=== PATIENT | male | born 1990 | race Caucasian/White ===

== ENCOUNTER 2025-04-05 08:33 | Emergency (ER) | payer OTHER, SELFPAY ==
--- NOTE | 2025-04-05 08:35 | ED_ITS ---
HPI - Skin/Abscess/Foreign Bdy General Chief complaint: Skin/Abscess/Foreign Body Stated complaint: chiggar bites Source: patient and RN notes reviewed Mode of arrival: ambulatory Limitations: no limitations History of Present Illness HPI narrative: 34-year-old male presents with concern for insect bites. He reports he was camping on Saturday and went for a walk in the [facility]. Reports he had multiple bug bites all over his body, worse on his buttock and groin it. Reports they are very itchy. Reports his pulled red sugars from his skin. He has used calamine lotion, hydrocortisone without relief. MD complaint: insect bite/sting Related Data Home Medications ?Medication ?Instructions ?Recorded ?Confirmed ?Last Taken ?Type buspirone 10 mg tablet mg 04/05/25 Unknown History duloxetine 30 mg capsule,delayed mg PO 04/05/25 Unknown History release Allergies Allergy/AdvReac Type Severity Reaction Status Date / Time No Known Allergies Allergy Mild Verified 10/29/14 19:16 Review of Systems Review of Systems: CONSTITUTIONAL: Denies malaise, chills, sweats, or fever. EYES: Denies redness, or discharge. ENT: Denies rhinorrhea, congestion, swollen lips, swollen tongue CARDIOVASCULAR: Denies chest pain, palpitations, or edema. RESPIRATORY: Denies cough or dyspnea. GASTROINTESTINAL: Denies abdominal pain, nausea, vomiting SKIN: Reports insect bites generalized on his body MUSCULOSKELETAL: Denies joint pain or myalgia. NEUROLOGIC: Denies headache. All systems reviewed & are unremarkable except as noted in HPI and below PMFSH Comments At time of signature, agree with nursing past medical, surgical, social and family history. There is no relevant family history pertinent to the presenting complaint Exam Narrative: GENERAL: Well-appearing, well-nourished, and in no acute distress. HEAD: Normocephalic, atraumatic. EYES: PERRLA, conjunctivae clear, and EOMI. ENT: Mucous membranes moist. Oropharynx without edema, erythema or lesions. NECK: Supple. No lymphadenopathy CHEST: Clear to auscultation. No respiratory distress. HEART: Regular rate and rhythm. SKIN: Warm, dry. Discrete inflamed papules noted scattered on the arms, legs, torso, concentrated on the buttocks and groin NEURO: Alert and oriented x3. PSYCH: Normal mood and affect Course Course Emergency Course: Patient is aware of diagnosis, understands and agrees to treatment plan. Anticipatory guidance given. Patient agrees to follow-up as directed and is aware of reasons to seek care at the emergency department. Portions of this record may have been created with voice recognition software Level of Care: Express Care Visit Vital Signs Vital signs: Reviewed. MDM - Skin/Abscess/Foreign Bdy MDM Narrative Medical decision making narrative: Does not appear at this time to be erythema multiforme, bullous, SJS, TEN; no evidence at this time to suggest RMSF, endocarditis or Lyme disease; patient looks well, nontoxic and is tolerating oral intake; no neurologic signs or symptoms; no headache, photophobia or neck pain; afebrile; appropriate for initial outpatient treatment; discussed the importance of follow-up, patient a timmy; question, viral exanthema, contact dermatitis, allergic dermatitis, eczema, urticaria, insect bite. No soft palate or uvula edema, no tongue, lip edema or other mucosal involvement, no respiratory compromise, no stridor, no wheezing, no wheezing, no history of syncope, no hypotension, no nausea, vomiting, or diarrhea. Instructed patient to go to nearest ER immediately for any worsening symptoms including but not limited to: fever, spreading rash, pain, sore throat, headache, dizziness, chest pain, trouble breathing, or any symptoms concerning to the patient. Critical Care Time Critical Care Time Critical Care Time: No Discharge Plan Discharge Clinical Impression: Insect bites Patient Disposition: Home Condition: Stable Instructions: Chigger Bite (ED) Additional Instructions: 1) Please follow-up with your primary care doctor as needed. 2) If you have any urgent concerns please go to the ER. 3) Please take medications as prescribed and continue taking your home medications as usual. 4) Please read and follow information included in discharge instructions. Patient Language: Rwandan Prescriptions: New prednisone 10 mg tablet 10 mg PO DAILY Qty: 42 0RF Rx Instructions: 6 tabs days 1-2, 5 tabs days 3-4, 4 tabs days 5-6, 3 tabs days 7-8, 2 tabs days 9-10, 1 tab days 11-12 No Action buspirone 10 mg tablet duloxetine 30 mg capsule,delayed release(DR/EC) PO Follow-up/Referrals: Brando,Shereen Arnold APN [Primary Care Provider] - Time of Disposition: 08:56
--- OUTSIDE RECORDS SUMMARY | 2025-04-05 08:36 | XMS_ITS | Patient Health Record ---
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 Role Phone Michaels Shereen BALDERAS Primary Care Provider Chelsea Brooks Unavailable [phone] Terry Avalos Unavailable [phone] Allergies No Known Allergies Results Component Value Reference Range Notes UDT Reviewed date:03/15/2025 11:17:41 AM Interpretation: Performing Lab: Notes/Report: THC n 0 - 50 ng/ml Cocaine n 0 - 300 ng/ml Amphetamine n 0 - 1000 ng/ml Buprenorphine (BUP) n 0 - 10 ng/ml Secobarbital (Bar) n 0 - 300 ng/ml Oxazepam (BZO) n 0 - 300 ng/ml 8-xwqhykttxw-2,2-cxcwyqdg-7,3-diphenylpyrrolidine (JEWEL P) n 0 - 300 ng/ml Methamphetamine (MET) n 0 - 1000 ng/ml Methylenedioxymethamphetamine (MDMA) n 0 - 500 ng/ml Morphine (MOP 300/NAR2220) n 0 - 300 ng/ml Methadone (MTD) n 0 - 300 ng/ml Phencyclidine (PCP) n 0 - 25 ng/ml Nortriptyline (TCA) n 0 - 1000 ng/ml Oxycodone n 0 - 300 ng/ml x n 0 - 300 ng/ml UDT Reviewed date:12/08/2024 04:47:19 PM Interpretation: Performing Lab: Notes/Report: THC NEG 0 - 50 ng/ml Cocaine NEG 0 - 300 ng/ml Amphetamine NEG 0 - 1000 ng/ml Buprenorphine (BUP) NEG 0 - 10 ng/ml Secobarbital (Bar) NEG 0 - 300 ng/ml Oxazepam (BZO) NEG 0 - 300 ng/ml 8-gwuatuaqpn-8,8-comseyur-7,3-diphenylpyrrolidine (JEWEL P) NEG 0 - 300 ng/ml Methamphetamine (MET) NEG 0 - 1000 ng/ml Methylenedioxymethamphetamine (MDMA) NEG 0 - 500 ng/ml Morphine (MOP 300/FMI3329) NEG 0 - 300 ng/ml Methadone (MTD) NEG 0 - 300 ng/ml Phencyclidine (PCP) NEG 0 - 25 ng/ml Nortriptyline (TCA) NEG 0 - 1000 ng/ml Oxycodone NEG 0 - 300 ng/ml x NEG 0 - 300 ng/ml UDT Reviewed date:11/23/2024 11:41:54 AM Interpretation: Performing Lab: Notes/Report: THC N 0 - 50 ng/ml Cocaine N 0 - 300 ng/ml Amphetamine N 0 - 1000 ng/ml Buprenorphine (BUP) N 0 - 10 ng/ml Secobarbital (Bar) N 0 - 300 ng/ml Oxazepam (BZO) N 0 - 300 ng/ml 0-fotjzdpyuq-8,2-ewhzqslb-9,3-diphenylpyrrolidine (JEWEL P) N 0 - 300 ng/ml Methamphetamine (MET) N 0 - 1000 ng/ml Methylenedioxymethamphetamine (MDMA) N 0 - 500 ng/ml Morphine (MOP 300/UEM2380) N 0 - 300 ng/ml Methadone (MTD) N 0 - 300 ng/ml Phencyclidine (PCP) N 0 - 25 ng/ml Nortriptyline (TCA) N 0 - 1000 ng/ml Oxycodone N 0 - 300 ng/ml x N 0 - 300 ng/ml Reason For Referral No Information Medications Medication SIG (Take, Route, Frequency, Duration) Notes Start Date End Date Status busPIRone HCl 10 MG 1 capsule Orally 3 times a day; Duration: 30 days Active Lisdexamfetamine Dimesylate 30 MG 1 capsule in the morning Orally Once a day; Duration: 30 days 03/15/2025 Active amLODIPine Besylate 10 MG TAKE 1 TABLET BY MOUTH EVERY DAY Oral; Duration: 90 Days I10,Unavailab le Active Testosterone 10 MG/ACT (2%) 1 pump to skin in the morning to the thighs Transdermal Once a day Active Social History Tobacco Use: Social History Observation Description Date Details (start date - stop date) Former Smoker NA - 09/02/2018 Sex Assigned At : Social History Observation Description Sex Assigned At Male Tobacco Control (Standard) Question Answer Notes Tobacco use: Former smoker When did you stop smoking? 09/02/2018 How long has it been since you last smoked? 1-5 years AUDIT-C (Standard) Question Answer Notes Did you have a drink containing alcohol in the p ast year? No Problems Problem Type SNOMED Code ICD Code Onset Dates Problem Status W/U Status Risk Notes Problem Generalized anxiety disorder (76368623) BEV (generalized anxiety disorder) (F41.1) Active confirmed Problem Attention deficit hyperactivity disorder (327031923) ADHD (attention deficit hyperactivity disorder), combined type (F90.2) Active confirmed Problem Unable to concentrate (finding) (11249456) Difficulty concentrating (R41.840) Active confirmed Vital Signs Heart Rate 73 /min 03/15/2025 Height-cm 185.42 cm 03/15/2025 Blood pressure diastolic 81 mm Hg 03/15/2025 Weight-kg 99.34 kg 03/15/2025 Height 73 in 03/15/2025 Blood pressure systolic 137 mm Hg 03/15/2025 Weight 219 lbs 03/15/2025 BMI 28.89 kg/m2 03/15/2025 Procedures Procedure Date Ordered Date Performed Result Body Sit e ADHD Testing 11/23/2024 12/08/2024 N/A Encounters Encounter Location Date Provider Diagnosis [facility] [address] [address] 11/23/2024 Chelsea Martin Encounter for screen ing for cardiovascular disorders Z13.6 ; Difficulty concentrating R41.840 and Encounter for screening for depression Z13.31 [facility] [address] [facility] [address] [facility] [address] [facility] [address] [place] [address] 12/08/2024 Terry Avalos Lack of concentratio n R41.840 [facility] [address] [facility] [address] [place] [address] 12/15/2024 Chelsea Martin Encounter for screen ing for cardiovascular disorders Z13.6 ; ADHD (attention deficit hyperactivity disorder), combined type F90.2 ; Benign essential HTN I10 and Encounter for screening for depression Z13.31 [facility] [facility] [address] [place] [address] 01/07/2025 Chelsea Bethanyroseanne ADHD (attention defi cit hyperactivity disorder), combined type F90.2 ; BEV (generalized anxiety disorder) F41.1 ; Negative depression screening Z13.31 ; Benign essential HTN I10 ; Encounter for screening for cardiovascular disorders Z13.6 and Encounter for screening for depression Z13.[address] [facility] [address] [place] [address] 02/15/2025 Chelsea Bethanyroseanne BEV (generalized anxiety disorder) F41.1 ; ADHD (attention deficit hyperactivity disorder), combined type F90.2 ; Negative depression screening Z13.31 ; Benign essential HTN I10 ; Encounter for screening for cardiovascular disorders Z13.6 and Encounter for screening for depression Z13.[address] [facility] [address] [place] [address] 03/15/2025 Chelsea Veronica BEV (generalized anxiety disorder) F41.1 and ADHD (attention deficit hyperactivity disorder), combined type F90.[address] [address] 12/15/2024 Cehlsea Veronica Assessments Encounter Date Diagnosis (ICD Code) Assessment Notes Treatment Notes Treatment Clinical Notes Section Notes 12/15/2024 ADHD (attention deficit hyperactivity disorder), combined type (ICD-10 - F90.2) Electronic Prior Authorization was requested for Qelbree 200 MG Capsule Extended Release 24 Hour. Provider can order medication once approval received. 12/08/2024 Lack of concentration (ICD-10 - R41.840) ADHD and Cognitive Function Assessment Summary for Iron Dacosta Date of : 1990 Age: 34 years Date of Assessment: December 08, 2024 Source: [facility] Clinical Report Summary of Findings 1. ADHD Symptomatology (ASRS) Part A: High frequency of symptoms reported. This section includes the six most predictive items for ADHD diagnosis. Interpretation: Strong indication of behaviors aligned with adult ADHD. These may include difficulty initiating tasks, staying focused, and managing time or priorities. 2. Cognitive Assessment Results Planning (Spatial Planning) Score: 23 Above typical range Interpretation: Although performance is above average, it may reflect overcompensation or variability, often seen in individuals with ADHD who perform well under structured conditions but struggle in dynamic or real-world planning tasks. Spatial Working Memory Average Score: 5.6 Above the typical range Interpretation: Suggests preserved working memory capacity, which can support task management and mental flexibility. Attention (Feature Match) Errors: 2 (within typical range) Reaction Time: 3750 milliseconds, above typical range Interpretation: Accuracy is intact, but slowed processing suggests cognitive effort or mental fatigue. This discrepancy between speed and accuracy may reflect compensation or attentional overload. Response Inhibition (Double Trouble) Errors: 9 (within typical range) Interference Ratio for Errors: 4 (within typical range) Interpretation: Basic inhibitory control appears adequate, though slower processing in attention tasks may still impact real-time inhibitory demands in daily functioning. Sustained Attention (SART) Commission Errors: 4 Omission Errors: 2 Both within typical range Interpretation: Sustained attention appears functional in structured tasks, but may not reflect full real-life distractions or interruptions that typically challenge individuals with ADHD. Integrated Clinical Interpretation Iron presents with: ASRS-confirmed ADHD symptomatology, especially in executive and attentional domains. Objective cognitive indicators that reveal slowed processing speed and increased cognitive effort despite maintained accuracy. Functional executive skills like working memory and planning that are preserved in testing but may not translate to consistent real-world performance due to attentional regulation difficulties. Recommendations Confirmatory Diagnostic Interview Conduct a clinical interview and obtain developmental history to validate ADHD diagnosis, ideally with collateral reports if available. Targeted Executive Function Interventions Cognitive-behavior al approaches focused on task initiation, organization, and time management may improve day-to-day function. Use of external aids such as digital reminders, checklists, and time-tracking tools can assist in reducing cognitive load. Consideration for Pharmacological Evaluation Referral to a psychiatrist or prescribing provider for a medication trial may be appropriate if symptoms interfere with occupational or personal functioning. Routine Monitoring Repeat cognitive assessments periodically to evaluate response to treatment or support interventions, particularly focusing on attention and response time. Environmental Adjustments Minimize distractions during work or demanding tasks. Implement structure and routine where possible to optimize attention and reduce impulsivity. 12/15/2024 Encounter for screening for cardiovascular disorders (ICD-10 - Z13.6) 01/07/2025 BEV (generalized anxiety disorder) (ICD-10 - F41.1) 01/07/2025 ADHD (attention deficit hyperactivity disorder), combined type (ICD-10 - F90.2) Electronic Prior Authorization was requested for Qelbree 200 MG Capsule Extended Release 24 Hour. Provider can order medication once approval received. 02/15/2025 BEV (generalized anxiety disorder) (ICD-10 - F41.1) 02/15/2025 ADHD (attention deficit hyperactivity disorder), combined type (ICD-10 - F90.2) Electronic Prior Authorization was requested for Qelbree 200 MG Capsule Extended Release 24 Hour. Provider can order medication once approval received. 03/15/2025 BEV (generalized anxiety disorder) (ICD-10 - F41.1) 11/23/2024 Encounter for screening for cardiovascular disorders (ICD-10 - Z13.6) 11/23/2024 Difficulty concentrating (ICD-10 - R41.840) Pre-treatment evaluation and contraindications Before initiating treatment with a stimulant in adults, we review their cardiovascular history, including chest pain, palpitations, syncope, myocardial infarction, arrhythmia, valvular disease, and family history. We measure blood pressure and pulse in all patients and obtain an electrocardiogram (ECG) in individuals with cardiac history or cardiac symptoms such as palpitations or chest pain. In individuals with a cardiac history, or when findings outside normal limits are seen, we consult a core manager to determine whether the results are sufficiently severe to avoid these medications. We also rule out CAROL; if you are using cannabis, are heavy alcohol, or are using other street drugs and have a history of CAROL, than we consider non-stimulant treatment. We also do routine and random UDT If you refuse or fail to give urine for urine, then we will not prescribe controlled substances. If your urine comes positive for medicine (which are not prescribed to you) and illicit drugs (including Cannabis) then we will not prescribe a controlled substance There is a charge for Stimulant refills 02/15/2025 Negative depression screening (ICD-10 - Z13.31) 11/23/2024 Encounter for screening for depression (ICD-10 - Z13.31) 03/15/2025 ADHD (attention deficit hyperactivity disorder), combined type (ICD-10 - F90.2) ADHD Stimulant Education -Discussed with patient risk of misuse, abuse, and addiction before prescribing stimulant medicines. -Counseled not to share their prescribed stimulant with anyone else. -Educated patient will monitor during treatment: regularly assess and monitor them for signs and symptoms of nonmedical use, addiction, and potential diversion, which may be evidenced by more frequent renewal requests and medication metabolites absent from urine drug screens. -Random UDS (at least every three months or more frequently deemed by provider). -Per office policy, only prescribed to local pharmacy in [place], no early refills on control substance. 01/07/2025 Negative depression screening (ICD-10 - Z13.31) 12/15/2024 Benign essential HTN (ICD-10 - I10) 01/07/2025 Benign essential HTN (ICD-10 - I10) 12/15/2024 Encounter for screening for depression (ICD-10 - Z13.31) 02/15/2025 Benign essential HTN (ICD-10 - I10) 02/15/2025 Encounter for screening for cardiovascular disorders (ICD-10 - Z13.6) 01/07/2025 Encounter for screening for cardiovascular disorders (ICD-10 - Z13.6) 01/07/2025 Encounter for screening for depression (ICD-10 - Z13.31) 02/15/2025 Encounter for screening for depression (ICD-10 - Z13.31) 11/23/2024 Other Schedule for ADHD evaluation to rule in or rule out diagnosis. Continue atomoxetine 80mg daily for now. -Consider dose increase to 100mg or Qelbree pending evaluation results. --avoid stimulant medication due to history of substance use -Assessment and treatment plan reviewed with patient. -Compliance with treatment plan importance discussed. -Discussed the risks/benefits of this medication -Discussed medication side effects. -Contact office if symptoms worsen. -Discussed that it can take up to 6-8 weeks to see full therapeutic effects of psychotropic medications. -Crisis prevention hotline 988. 12/15/2024 Other Discontinue atomoxetine due to ineffectiveness Start Qelbree 200mg daily for ADHD management Patient educated on all medications including potential benefits, side effects, risks. Educated on proper dosing schedule and importance of compliance. [facility] Clinical Report ADHD testing results reviewed and discussed with patient. -Assessment and treatment plan reviewed with patient. -Compliance with treatment plan importance discussed. -Discussed the risks/benefits of this medication -Discussed medication side effects. -Contact office if symptoms worsen. -Discussed that it can take up to 6-8 weeks to see full therapeutic effects of psychotropic medications. -Crisis prevention hotline 988. 01/07/2025 Other Increase Qelbree to 400mg daily for ADHD management Start Buspar 5mg TID for anxiety Patient educated on all medications including potential benefits, side effects, risks. Educated on proper dosing schedule and importance of compliance. -Assessment and treatment plan reviewed with patient. -Compliance with treatment plan importance discussed. -Discussed the risks/benefits of this medication -Discussed medication side effects. -Contact office if symptoms worsen. -Discussed that it can take up to 6-8 weeks to see full therapeutic effects of psychotropic medications. -Crisis prevention hotline 988. 02/15/2025 Other Discontinue Qelbree due to irritability- take 200mg daily for 4 days then stop -continue off of ADHD medication for now, will focus on anxiety. Start duloxetine 30mg daily for mood, anxiety -discussed start after compelting Qelbree taper due to interaction between the two medications. Patient educated on all medications including potential benefits, side effects, risks. Educated on proper dosing schedule and importance of compliance. -Assessment and treatment plan reviewed with patient. -Compliance with treatment plan importance discussed. -Discussed the risks/benefits of this medication -Discussed medication side effects. -Contact office if symptoms worsen. -Discussed that it can take up to 6-8 weeks to see full therapeutic effects of psychotropic medications. -Crisis prevention hotline 988. 03/15/2025 Other Start lisdexamfetamine 30mg daily for ADHD management Patient educated on all medications including potential benefits, side effects, risks. Educated on proper dosing schedule and importance of compliance. [place] PDMP report checked and consistent with prescription history, no controlled substance prescriptions from other providers. UDT today negative -Assessment and treatment plan reviewed with patient. -Compliance with treatment plan importance discussed. -Discussed the risks/benefits of this medication -Discussed medication side effects. -Contact office if symptoms worsen. -Discussed that it can take up to 6-8 weeks to see full therapeutic effects of psychotropic medications. -Crisis prevention hotline 988. Plan Of Treatment No Information Insurance Providers Payer Name Payer Address Payer Phone Subscriber Number Group Number Insured Name Patient Relationship to Insured Coverage Start Date Coverage End Date [facility] [id number] [place] [address] [id number] Iron Doherty Self - patient is the insured Medical (General) History Medical History History ICD Code Past Psychiatric History: Anxiety Disord er abdominal aortic aneurysm: No atrial fibrillation: No chronic fatigue syndrome: No essential tremor: No hyperlipidemia: No hypertension: No Parkinson's disease: No restless leg syndrome: No stroke: No subdural hematoma: No type 1 diabetes mellitus: No type 2 diabetes mellitus: No vitamin B12 deficiency: No vitamin D deficiency: No
--- OUTSIDE RECORDS SUMMARY | 2025-04-05 08:39 | XMS_ITS | Referral Summary ---
Author Organization [facility] Address [address] [place] [address] Care Team Providers Care Tire Stripper Name Role Phone BrandoMagdielShereenbelia Barney NP Primary Care Provider Allergies No known active allergies Medications cyclobenzaprine (FLEXERIL) 10 mg tablet take 1 tablet (10MG) by oral route 2- 3 times daily as needed 20 0 5 Active Additional Information Patient not taking.Reported on 07/11/2020 traMADol (ULTRAM) 50 mg tablet take 1 tablet by oral route every 8 hours as needed 30 0 5 Active Additional Information Patient not taking.Reported on 07/11/2020 acetaminophen-c odeine (TYLENOL-CODEIN E #3) 300-30 mg per tablet take 1 tablet by oral route every 6 hours as needed 20 0 5 Active Additional Information Patient not taking.Reported on 09/26/2022 ibuprofen (ADVIL,MOTRIN) 600 mg tablet Take 1 tablet (600 mg total) by mouth every 6 (six) hours as needed for pain 20 tablet 3 Active Active Problems Problem Noted Date Diagnosed Date Antisocial personality disorder 09/26/2022 Anxiety 09/26/2022 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 CT work up is negative. Physical exam shows tenderness without any other sign. Recommended muscle strain protocol and to follow up with his primary for management. Recurrent herpes simplex 11/21/2018 History of hepatitis C 11/18/2018 Left wrist pain 11/18/2018 Pityriasis versicolor 11/18/2018 Ankle pain 10/26/2014 Overview (2016): Ankle pain Knee pain 10/26/2014 Overview (2016): Knee pain Back pain 10/26/2014 Overview (2016): Back pain Rib pain 10/26/2014 Overview (2016): Rib pain Social History Tobacco Use Types Packs/Day Years Used Date Smoking Tobacco: Former Alcohol Use Standard Drinks/Week Comments Defer 0 (1 standard drink = 0.6 oz pur e alcohol) Personal Safety Answer Date Recorded Getting School Help Needed Denies 08/28 Sex and Gender Information Value Date Recorded Sex Assigned at Not on file Legal Sex Male 12:42 AM RESPIRATORY SUPPORT TECHNICIAN Gender Identity Not on file Sexual Orientation Not on file Last Filed Vital Signs Vital Sign Reading Time Taken Comments Blood Pressure 132/70 09/26/2022 1:48 PM RESPIRATORY SUPPORT TECHNICIAN Pulse 61 09/26/2022 1:48 PM RESPIRATORY SUPPORT TECHNICIAN Temperature 36.8 C (98.2 F) 09/26/2022 10:54 AM RESPIRATORY SUPPORT TECHNICIAN Respiratory Rate 16 09/26/2022 1:48 PM RESPIRATORY SUPPORT TECHNICIAN Oxygen Saturation 98% 09/26/2022 1:48 PM RESPIRATORY SUPPORT TECHNICIAN Inhaled Oxygen Concentration - - Weight 90.7 kg (200 lb) 09/26/2022 10:54 AM RESPIRATORY SUPPORT TECHNICIAN Height 185.4 cm (6' 1) 09/26/2022 10:54 AM RESPIRATORY SUPPORT TECHNICIAN Body Mass Index 26.39 09/26/2022 10:54 AM RESPIRATORY SUPPORT TECHNICIAN Plan of Treatment Not on file Procedures Procedure Name Priority Date/Time Associated Diagnosis Comments SERUM HEPATITIS PANEL Routine 07/15/2013 12:04 PM RESPIRATORY SUPPORT TECHNICIAN from Last 3 Months or Most Recently Relevant to Health Maintenance Results * Serum Hepatitis panel (07/15/2013 12:04 PM RESPIRATORY SUPPORT TECHNICIAN) HBV surface ag NONREAC NONREAC HISTO RICAL RESULTS HAV ab, IgM NONREAC NONREAC HISTORIC AL RESULTS Comment: Early acute infection (within the prior 2 weeks) is not ruled out by this test. HBV core ab, IgM NONREAC NONREAC HIS TORICAL RESULTS HCV ab REACTIVE NONREAC HISTORICAL RESULTS Comment: Critical value called with verification read back Test(s):HEPATITIS C Contact Name:(first, last name):MARY GUAJARDO Location:ER Date/Time and Lab ID: 07/15/13 15:47 [id number] CONFIRMATORY TESTING IS RECOMMENDED. Serum 07/15/2013 12:0 4 PM RESPIRATORY SUPPORT TECHNICIAN us Diego [facility] LAB BLOOD ORDERABLES Final R esult HISTORICAL RESULTS from Last 3 Months or Most Recently Relevant to Health Maintenance Insurance [facility] MEDICAID [facility] CIG[employer] ALLEGIANCE Care Teams Tire Stripper Relationship Specialty Start Date End Date Shereen Michaels NP [address] [place] [address] PCP - General Nurse Practitioner 09/26/22
--- OUTSIDE RECORDS SUMMARY | 2025-04-05 08:39 | XMS_ITS | Clinical Summary ---
Author Organization [facility] Address [address] [place] [address] Care Team Providers Care Cloth Coverer Name Role Phone Unavailable Primary Care Provider Unavailabl e Source Comments [facility],non-owned Affiliates and Associated Physician Practices is amultiple site organization consisting of ambulatory clinics and hospital sitesin [place], [place], [place] and [place]. This disclosure is being madepursuant to the Care Everywhere program and may not contain all information available regarding this patient. Last updated 18.[facility] [id number] Social History Tobacco Use Types Packs/Day Years Used Date Smoking Tobacco: Never Assessed Sex and Gender Information Value Date Recorded Sex Assigned at Not on file Legal Sex Male 5:28 PM ENRICHMENT ASSISTANT Gender Identity Not on file Sexual Orientation Not on file Plan of Treatment Health Maintenance Due Date Last Done Comments HIV SCREENING 12/05/2006 DTAP/TDAP/TD VACCINES (1 - Tdap) 12/05/2010 HEPATITIS B VACCINE (1 of 3 - 19+ 3-dose series) 12/05/2010 HPV VACCINE (1 - 3-dose SCDM series) 12/05/2018 COVID-19 VACCINE ( - 2023-2 5 season) 2024 DEPRESSION SCREENING 09/02/2024 INFLUENZA VACCINE (#1) 2025 ZOSTER VACCINE (1 of 2) 12/05/2041 HEPATITIS C SCREENING Completed 05/17/2017 , 05/17/2017 HIB VACCINE Aged Out No longer eligi ble based on patient's age to complete this topic MENINGOCOCCAL (Group B) VACCINE SHARED DECISION-MAKING Aged Out No longer eligible based on patient's age to complete this topic MENINGOCOCCAL GROUPS A/C/Y/W VACCINE Aged Out No longer eligible b ased on patient's age to complete this topic PNEUMOCOCCAL VACCINE Aged Out No long er eligible based on patient's age to complete this topic Insurance [facility] MED[facility] - OUT OF STATE
--- OUTSIDE RECORDS SUMMARY | 2025-04-05 08:39 | XMS_ITS | Clinical Summary ---
Author Organization [facility] Address [address] [place] [address] Care Team Providers Care Pageant Director Name Role Phone BrandoMagdielShereenbelia Barney NP Primary [...] 08/07/2020 Assessment & Plan (08/07/2020 6:38 PM COMMUNITY OUTREACH DIRECTOR): 2 month long history of abdominal pain. [...] Rib pain 10/26/2014 Overview (2016): Rib pain Surgical History Surgery Date Site/Laterality Comments MENISCUS SURGERY Medical History Medical History Date Comments Hx Other Medical 11-17-14- Left k nee arthroscopic partial lateral me; Comments: FRANCO 11/30/2014 - Hepatitis C in remission Family History Medical History Relation Name Comments Arthritis Other Family history of arthritis; Relation Name Status Comments Other Social History Tobacco Use Types Packs/Day Years Used Date Smoking Tobacco: Former Alcohol Use Standard Drinks/Week Comments Defer 0 (1 standard drink = 0.6 oz pur e alcohol) Personal Safety Answer Date Recorded Getting School Help Needed Denies 08/28 Sex and Gender Information Value Date Recorded Sex Assigned at Not on file Legal Sex Male 12:42 AM COMMUNITY OUTREACH DIRECTOR Gender Identity Not on file Sexual Orientation Not on file Obstetrics History Last Filed Vital Signs Vital Sign Reading Time Taken Comments Blood Pressure 132/70 09/26/2022 1:48 PM COMMUNITY OUTREACH DIRECTOR Pulse 61 09/26/2022 1:48 PM COMMUNITY OUTREACH DIRECTOR Temperature 36.8 C (98.2 F) 09/26/2022 10:54 AM COMMUNITY OUTREACH DIRECTOR Respiratory Rate 16 09/26/2022 1:48 PM COMMUNITY OUTREACH DIRECTOR Oxygen Saturation 98% 09/26/2022 1:48 PM COMMUNITY OUTREACH DIRECTOR Inhaled Oxygen Concentration - - Weight 90.7 kg (200 lb) 09/26/2022 10:54 AM COMMUNITY OUTREACH DIRECTOR Height 185.4 cm (6' 1) 09/26/2022 10:54 AM COMMUNITY OUTREACH DIRECTOR Body Mass Index 26.39 09/26/2022 10:54 AM COMMUNITY OUTREACH DIRECTOR Plan of Treatment Health Maintenance Due Date Last Done Comments Depression Screening 1991 Varicella Vaccines (1 of 2 - 13+ 2-dose series) 12/05/2004 Hepatitis B Screening 12/05/2009 Regular Well Visit/Exam 18-64 12/05/2009 Pneumococcal vaccine <65 (1 of 2 - PCV) 12/05/2010 HPV Vaccines (1 - 3-dose SCD M series) 12/05/2018 Covid-19 Vaccine (3 - 2023-2 5 season) 2024 07/07/2021, 06/09/2021 Influenza Vaccine (#1) 2025 9, 07/20/2013, 07/20/2013 DTaP/Tdap/Td Vaccine (6 - Td or Tdap) 04/11/2026 04/11/2016, 07/26/1993, 11/09/1992, Additional history exists Hepatitis C Screening Completed 09/26/2022 , 11/18/2018, 07/15/2013 Procedures Procedure Name Priority Date/Time Associated Diagnosis Comments SERUM HEPATITIS PANEL Routine 07/15/2013 12:04 PM COMMUNITY OUTREACH DIRECTOR from Last 3 Months or Most Recently Relevant to Health Maintenance Results * Serum Hepatitis panel (07/15/2013 12:04 PM COMMUNITY OUTREACH DIRECTOR) HBV surface ag NONREAC NONREAC HISTO RICAL [...] Location:ER Date/Time and Lab ID: 07/15/13 15:47 [id number] CONFIRMATORY TESTING IS RECOMMENDED. Serum 07/15/2013 12:0 4 PM COMMUNITY OUTREACH DIRECTOR us Diego [facility] LAB BLOOD ORDERABLES Final R esult HISTORICAL RESULTS from Last 3 Months or Most Recently Relevant to Health Maintenance Insurance [facility]ICA[facility] Care Teams Pageant Director Relationship Specialty Start Date End Date Brando, Shereen Barney NP [address] [place] [address] PCP - General Nurse Practitioner 09/26/22
--- OUTSIDE RECORDS SUMMARY | 2025-04-05 08:39 | XMS_ITS | Clinical Summary ---
Author Organization [facility] Address [address] [address] Phone Care Team Providers Care Human Resources Consultant Name Role Phone Jasper Wiggins DO Unavailable [phone] Shereen Michaels APRN, C T TECH Primary Care Provider [phone] Allergies No known active allergies Medications QUEtiapine Fumarate (SEROQUEL PO) Take by mouth. Active Glecaprevir-Pibr entasvir (MAVYRET PO) Take by mouth. Active Immunizations Immunization Administration Dates Next Due TDAP Vaccine 04/11/2016 Social History Tobacco Use Types Packs/Day Years Used Date Smoking Tobacco: Former Cigarettes 0.5 1 0 09/29/2017 - 09/29/2018 Smokeless Tobacco: Never Tobacco Cessation:Ready to Q uit: Yes; Counseling Given: Yes Alcohol Use Standard Drinks/Week Comments No 0 (1 standard drink = 0.6 oz pur e alcohol) occasional Sex and Gender Information Value Date Recorded Sex Assigned at Not on file Legal Sex Male 1:56 PM STATIONARY ENGINEER Gender Identity Not on file Sexual Orientation Not on file Last Filed Vital Signs Vital Sign Reading Time Taken Comments Blood Pressure 162/84 04/23/2019 2:32 PM CDT Pulse 73 04/23/2019 2:32 PM CDT Temperature 36.6 C (97.8 F) 01/27/2019 3:04 PM CDT Respiratory Rate 18 04/23/2019 2:32 PM CDT Oxygen Saturation 97% 04/23/2019 2:32 PM CDT Inhaled Oxygen Concentration - - Weight 84.2 kg (185 lb 9.6 oz) 04/23/2019 2:32 P M CDT Height 185.4 cm (6' 1) 01/27/2019 3:04 PM CDT Body Mass Index 24.49 01/27/2019 3:04 PM CDT Plan of Treatment Health Maintenance Due Date Last Done Comments Hepatitis B Immunization (1 of 3 - 19+ 3-dose series) 12/05/2010 Human Papillomavirus (HPV) Immunization (1 - 3-dose SCDM series) 12/05/2018 SARS-COV-2 Immunization (3 - 2023- season) 2024 07/07/2021, 06/09/2021 Influenza Immunization (#1) 2025 11/18/2018 Respiratory Syncytial Virus (RSV) Immunization (Adult) (1 - 1-dose 75+ series) 12/05/2066 DTaP/Tdap/Td Immunization Discontinued 2015, 07/26/1993, 11/09/1992, Additional history exists Meningococcal Immunization (ACWY) Aged Out No longer eligible based on patient's age to complete this topic Pneumococcal Immunization Combined Aged Out No longer eligible based on patient's age to complete this topic Rotavirus Immunization Aged Out No lo nger eligible based on patient's age to complete this topic Insurance [facility] Care Teams Human Resources Consultant Relationship Specialty Start Date End Date Michaels, Shereen, FURNITURE POLISHER, C T TECH [address] [place] [address] PCP - General Family Medicine 11/25/18 Jasper Wiggins DO Gastroenterology 01/17/16
--- OUTSIDE RECORDS SUMMARY | 2025-04-05 08:39 | XMS_ITS | Clinical Summary ---
Author Organization [facility] Address [address] [place] [address] Care Team Providers Care Body Engineer Name Role Phone Kelly Giron MD Primary Care Provider [phone] Allergies No known active allergies Medications TESTOSTERONE CYPIONATE IM Inject 0.75 mL by intramuscular injection every 7 days. Active viloxazine (Qelbree) 200 mg Capsule, Sust. Release 24HRIndications:A ttention deficit hyperactivity disorder (ADHD), unspecified ADHD type Take 200 mg by mouth daily. Active amLODIPine (NORVASC) 5 mg tabletIndications :HTN (hypertension), benign Take 2 Tablets (10 mg) by mouth daily. Dose incresaed this date. Take two 5 mg tablets. 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 Anxiety 09/26/2022 Recurrent herpes simplex 11/21/2018 History of hepatitis C 11/18/2018 Encounters Date Type Department Care Team Description 03/02/2025 External Device Data [facility] ABSTRACTION Provider, Abstract 01/05/2025 External Device Data [facility] ABSTRACTION Provider, Abstract from Last 3 Months Immunizations Immunization Administration Dates Next Due (ADACEL/BOOSTRIX)(10 YR UP) TDAP VACCINE, 0.5ML, IM 04/11/2016 Family History Medical History Relation Name Comments No Known Problems Brother 1 No Known Problems Brother 2 No Known Problems Brother 3 COPD Father No Known Problems Maternal Grandfather No Known Problems Maternal Grandmother Lung Cancer Mother No Known Problems Paternal Grandfather No Known Problems Paternal Grandmother No Known Problems Sister Relation Name Status Comments Brother 1 Alive Brother 2 Alive Brother 3 Alive Father Alive Maternal Grandfather Maternal Grandmother Mother Alive Paternal Grandfather Paternal Grandmother Sister Alive Social History Tobacco Use Types Packs/Day Years Used Date Smoking Tobacco: Former Cigarettes Tobacco Cessation:Counseling Given: Not Answered Alcohol Use Standard Drinks/Week Comments Not Currently 0 (1 standard drink = 0.6 oz pur e alcohol) Sex and Gender Information Value Date Recorded Sex Assigned at Not on file Legal Sex Male 7:28 AM CDT Gender Identity Not on file Sexual Orientation Not on file 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 Not on file Not on file Last Filed Vital Signs Vital Sign Reading Time Taken Comments Blood Pressure 130/88 12/17/2024 10:48 AM CDT Pulse 84 12/17/2024 10:27 AM CDT Temperature 36.2 C (97.2 F) 12/17/2024 10:27 AM CDT Respiratory Rate 18 12/17/2024 10:27 AM CDT Oxygen Saturation 96% 12/17/2024 10:27 AM CDT Inhaled Oxygen Concentration - - Weight 99.8 kg (220 lb) 12/17/2024 10:27 AM CDT Height 185.4 cm (6' 1) 12/17/2024 10:27 AM CDT Body Mass Index 29.03 12/17/2024 10:27 AM CDT Plan of Treatment Health Maintenance Due Date Last Done Comments HPV VACCINES (1 - Male 3-dose series) 12/05/2006 HEPATITIS B VACCINES (1 of 3 - 19+ 3-dose series) 12/2010 INFLUENZA VACCINE (#1) 2025 DTAP/TDAP/TD VACCINES (2 - Td or Tdap) 04/11/2026 Abdominal Aortic Aneurysm (AAA) Screening Completed 07/20/2013 Insurance [employer] OPEN ACCESS Care Teams Body Engineer Relationship Specialty Start Date End Date Kelly Giron MD [address] [place] [address] [place] [address] PCP - General Internal Medicine 05/27/24
[2025-04-05 08:42] VITALS: BP 137/84; PULSE 86; RESP 20; TEMP 36.7; O2SAT 99
== END 2025-04-05 09:00 | disposition home or self-care (01) ==
PROVIDERS: Emergency Provider Nurse Practitioner; PCP Nurse Practitioner Family
DX: S40.862A Insect bite (nonvenomous) of left upper arm, initial encounter (principal); S40.861A Insect bite (nonvenomous) of right upper arm, initial encounter; S80.862A Insect bite (nonvenomous), left lower leg, initial encounter; S80.861A Insect bite (nonvenomous), right lower leg, initial encounter; S20.96XA Insect bite (nonvenomous) of unspecified parts of thorax, initial encounter; S30.860A Insect bite (nonvenomous) of lower back and pelvis, initial encounter; S30.861A Insect bite (nonvenomous) of abdominal wall, initial encounter; W57.XXXA Bitten or stung by nonvenomous insect and other nonvenomous arthropods, initial encounter
CPT/HCPCS: 99203; G0463

== ENCOUNTER 2025-04-14 08:03 | Emergency (ER) | payer OTHER, SELFPAY ==
--- NOTE | 2025-04-14 08:05 | ED_ITS ---
HPI - Skin/Abscess/Foreign Bdy General Chief complaint: Wound/Laceration Stated complaint: right fight chiggar infection Time Seen by Provider: 04/14/25 08:04 Source: patient Mode of arrival: ambulatory Limitations: no limitations History of Present Illness HPI narrative: Iron is a 34 year old male patient presenting to the clinic today with c/o possible infection to the right foot. States he has had a chigger bite him in the webbing between his right great toe and 2nd toe. He was seen in the clinic on April 05 and prescribed prednisone. Area developed a blister in he did not pop it under popped on its own and now it is draining yellow discharge. Area is not itching now but is somewhat tender. That he feels as though he has lymph node swelling in his neck and that he is having some body aches. No known fever. States that with he got the chigger bite out the smith he is also bit by some ticks. Related Data Home Medications ?Medication ?Instructions ?Recorded ?Confirmed ?Last Taken ?Type buspirone 10 mg tablet mg 04/05/25 Unknown History duloxetine 30 mg capsule,delayed mg PO 04/05/25 Unknown History release amlodipine 10 mg tablet mg 04/14/25 Unknown History Allergies Allergy/AdvReac Type Severity Reaction Status Date / Time No Known Allergies Allergy Mild Verified 10/29/14 19:16 Review of Systems Review of Systems: Pertinent positives per HPI. Patient denies any fever, chills, rash, headache, visual changes, dizziness, cough, runny nose, sore throat, shortness of breath, chest pain, palpitations, nausea, vomiting, diarrhea, constipation, abdominal pain, or any urinary issues. PMFSH Comments At the time of my signature, I reviewed and agree with the nursing past medical, surgical, social, and family history. There is no relevant family history pertinent to the patient complaint. Exam Narrative: General: Well-developed, well nourished, in no apparent distress Head: Normocephalic, atraumatic. Cardio: Regular rate and rhythm, s1 and s2 normal, no murmur appreciated. Resp: Clear to auscultation bilaterally, no rhonchi, rales, wheezing or rubs. Integumentary: [place], warm, and dry, popped blister open wound measuring 1.5 x 1cm in between the right great toe and 2nd toe-no discharge at this time. Tender to palpation over this area. Course Course Emergency Course: Portions of this record may have been created with voice recognition software. Level of Care: Express Care Visit Vital Signs Vital signs: Vital Signs Temperature 36.6 C 04/14/25 08:13 Pulse Rate 81 04/14/25 08:13 Respiratory Rate 18 04/14/25 08:13 Blood Pressure 144/85 H 04/14/25 08:13 Pulse Oximetry 99 04/14/25 08:13 Oxygen Delivery Room Air 04/14/25 08:13 Temperature 36.6 C 04/14/25 08:13 Pulse Rate 81 04/14/25 08:13 Respiratory Rate 18 04/14/25 08:13 Blood Pressure 144/85 H 04/14/25 08:13 Pulse Oximetry 99 04/14/25 08:13 Oxygen Delivery Room Air 04/14/25 08:13 Vital signs reviewed MDM - Skin/Abscess/Foreign Bdy MDM Narrative Medical decision making narrative: At the time of visit patient is resting comfortably on the exam table. Patient appears to be nontoxic. C/o possible infection to the right foot. States he has had a chigger bite him in the webbing between his right great toe and 2nd to e. He was seen in the clinic on April 05 and prescribed prednisone. Area developed a blister in he did not pop it under popped on its own and now it is draining yellow discharge. Area is not itching now but is somewhat tender. That he feels as though he has lymph node swelling in his neck and that he is having some body aches. No known fever. States that with he got the chigger bite out the smith he is also bit by some ticks. On exam patient has a popped blister in between the right great toe and 2nd toe-no discharge at this time. Tender to palpation over this area. Plan: I suspect patient has infected insect bite. Patient reporting body aches and swollen lymph nodes and has had some tick bites so will cover him with doxycycline and have him apply mupirocin cream to the wound. Prescription for doxycycline and mupirocin cream was sent to the pharmacy. Supportive measures were discussed with the patient and they voiced understanding discharge instructions and agrees to treatment plan. Return precautions reviewed Differential Diagnosis Differential diagnosis: Likely abscess of skin or subcutaneous tissue, viral exanthem, dermatophytosis, urticaria, herpes zoster, allergic reaction to drug, cellulitis, eczema, insect bites, impetigo and contact dermatitis Discharge Plan Discharge Clinical Impression: Infected insect bite Qualifiers: Encounter type: initial encounter Qualified Code(s): W57.XXXA - Bitten or stung by nonvenomous insect and other nonvenomous arthropods, initial encounter Patient Disposition: Home Condition: Stable Instructions: Antibiotic Form, Insect Bite or Sting (ED) Additional Instructions: Increase fluids and stay well hydrated Take doxycycline as prescribed Apply mupirocin cream as directed Keep wound clean and dry Wash area daily with soap and water May take Tylenol/Motrin per bottle instructions as needed for pain/fever Follow-up with your PCP in 3-5 days if symptoms persist or sooner if they worsen Patient Language: [place] Citizen Prescriptions: New doxycycline monohydrate 100 mg capsule 100 mg PO BID 7 Days Qty: 14 0RF mupirocin [Centany] 2 % ointment 1 applic topical BID 7 Days Qty: 22 0RF No Action buspirone 10 mg tablet duloxetine 30 mg capsule,delayed release(DR/EC) PO prednisone 10 mg tablet 10 mg PO DAILY Qty: 42 0RF Rx Instructions: 6 tabs days 1-2, 5 tabs days 3-4, 4 tabs days 5-6, 3 tabs days 7-8, 2 tabs days 9-10, 1 tab days 11-12 amlodipine 10 mg tablet Follow-up/Referrals: Michaels,Shereen Arnold APN [Primary Care Provider] - Time of Disposition: 08:21 Quality NIHSS Nursing Documentation ED NIHSS nursing documentation: reviewed/agree
--- OUTSIDE RECORDS SUMMARY | 2025-04-14 08:06 | XMS_ITS | Clinical Summary ---
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
--- OUTSIDE RECORDS SUMMARY | 2025-04-14 08:06 | XMS_ITS | Clinical Summary ---
Author Organization [facility] Address [address] [place] [id number] Care Team Providers Care Bowling Ball Grader Name Role Phone Kelly Giron MD Primary Care Provider [phone] Allergies No known active allergies Medications TESTOSTERONE [...] Encounters Date Type Department Care Team Description 04/07/2025 External Device Data [facility] ABSTRACTION Provider, Abstract 03/02/2025 External Device Data [facility] ABSTRACTION Provider, [...] 07/20/2013 Insurance [employer] OPEN ACCESS Care Teams Bowling Ball Grader Relationship Specialty Start Date End Date Kelly Giron MD [address] [place] [address] [employer] [place] [address] PCP - General Internal Medicine 05/27/24
--- OUTSIDE RECORDS SUMMARY | 2025-04-14 08:06 | XMS_ITS | Clinical Summary ---
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 Gender Identity Not on file Sexual Orientation Not on file Obstetrics History Last Filed Vital Signs Vital Sign Reading Time Taken Comments Blood Pressure 132/70 09/26/2022 1:48 PM PUMP HOUSE OPERATOR Pulse 61 09/26/2022 1:48 PM PUMP HOUSE OPERATOR Temperature 36.8 C (98.2 F) 09/26/2022 10:54 AM PUMP HOUSE OPERATOR Respiratory Rate 16 09/26/2022 1:48 PM PUMP HOUSE OPERATOR Oxygen Saturation 98% 09/26/2022 1:48 PM PUMP HOUSE OPERATOR Inhaled Oxygen Concentration - - Weight 90.7 kg (200 lb) 09/26/2022 10:54 AM PUMP HOUSE OPERATOR Height 185.4 cm (6' 1) 09/26/2022 10:54 AM PUMP HOUSE OPERATOR Body Mass Index 26.39 09/26/2022 10:54 AM PUMP HOUSE OPERATOR Plan of Treatment Health Maintenance Due Date [...] SERUM HEPATITIS PANEL Routine 07/15/2013 12:04 PM PUMP HOUSE OPERATOR from Last 3 Months or Most Recently Relevant to Health Maintenance Results * Serum Hepatitis panel (07/15/2013 12:04 PM PUMP HOUSE OPERATOR) HBV surface ag NONREAC NONREAC HISTO RICAL [...] Location:ER Date/Time and Lab ID: 07/15/13 15:47 [id number] CONFIRMATORY TESTING IS RECOMMENDED. Serum 07/15/2013 12:0 4 PM PUMP HOUSE OPERATOR us [facility] LAB BLOOD ORDERABLES Final R esult HISTORICAL RESULTS from Last 3 Months or Most Recently Relevant to Health Maintenance Insurance [facility] Care Teams Regulatory Affairs Portfolio Leader Relationship Specialty Start Date End Date Brando, Shereen Barney NP [address] [place] [address] PCP - General Nurse Practitioner 09/26/22
--- OUTSIDE RECORDS SUMMARY | 2025-04-14 08:06 | XMS_ITS | Clinical Summary ---
Author Organization [facility] Address [address] [place] [address] Care Team Providers Care Accounts Payable Clerk Name Role Phone Unavailable Primary Care Provider Unavailabl e Source Comments [facility],non-owned Affiliates and Associated Physician Practices is amultiple site organization consisting of ambulatory clinics and hospital sitesin [place], [place], [place] and [place]. This disclosure is being madepursuant to the Care Everywhere program and may not contain all information available regarding this patient. 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
--- OUTSIDE RECORDS SUMMARY | 2025-04-14 08:06 | XMS_ITS | Patient Health Record ---
Author Organization [facility] Address [address] [facility] [address] [place] [address] Care Team Providers Care Electronic Device Repairer Name Role Phone Michaels Shereen BALDERAS Primary Care Provider Chelsea Brooks Unavailable [phone] Terry Avalos Unavailable [phone] Allergies No Known Allergies Results Component Value Reference Range Notes UDT Reviewed date:04/13/2025 11:00:59 AM Interpretation: Performing Lab: Notes/Report: THC N 0 - 50 ng/ml Cocaine N 0 - 300 ng/ml Amphetamine P 0 - 1000 ng/ml Buprenorphine (BUP) N 0 - 10 ng/ml Secobarbital (Bar) N 0 - 300 ng/ml Oxazepam (BZO) N 0 - 300 ng/ml 6-gzicupnjws-3,4-lnaaryyx-8,3-diphenylpyrrolidine (JEWEL P) N 0 - 300 ng/ml Methamphetamine (MET) N 0 - 1000 ng/ml Methylenedioxymethamphetamine (MDMA) N 0 - 500 ng/ml Morphine (MOP 300/[id number]) N 0 - 300 ng/ml Methadone (MTD) N 0 - 300 ng/ml Phencyclidine (PCP) N 0 - 25 ng/ml Nortriptyline (TCA) N 0 - 1000 ng/ml Oxycodone N 0 - 300 ng/ml x N 0 - 300 ng/ml UDT Reviewed date:12/08/2024 04:47:19 PM Interpretation: Performing Lab: Notes/Report: THC NEG 0 - 50 ng/ml Cocaine NEG 0 - 300 ng/ml Amphetamine NEG 0 - 1000 ng/ml Buprenorphine (BUP) NEG 0 - 10 ng/ml Secobarbital (Bar) NEG 0 - 300 ng/ml Oxazepam (BZO) NEG 0 - 300 ng/ml 7-mwywyjgjlg-3,6-tdoohhzr-9,3-diphenylpyrrolidine (JEWEL P) NEG 0 - 300 ng/ml Methamphetamine (MET) NEG 0 - 1000 ng/ml Methylenedioxymethamphetamine (MDMA) NEG 0 - 500 ng/ml Morphine (MOP 300/[id number]) NEG 0 - 300 ng/ml Methadone (MTD) NEG 0 - 300 ng/ml Phencyclidine (PCP) NEG 0 - 25 ng/ml Nortriptyline (TCA) NEG 0 - 1000 ng/ml Oxycodone NEG 0 - 300 ng/ml x NEG 0 - 300 ng/ml UDT Reviewed date:03/15/2025 11:17:41 AM Interpretation: Performing Lab: Notes/Report: THC n 0 - 50 ng/ml Cocaine n 0 - 300 ng/ml Amphetamine n 0 - 1000 ng/ml Buprenorphine (BUP) n 0 - 10 ng/ml Secobarbital (Bar) n 0 - 300 ng/ml Oxazepam (BZO) n 0 - 300 ng/ml 7-wnqazyphgg-3,6-qmfppzdb-2,3-diphenylpyrrolidine (JEWEL P) n 0 - 300 ng/ml Methamphetamine (MET) n 0 - 1000 ng/ml Methylenedioxymethamphetamine (MDMA) n 0 - 500 ng/ml Morphine (MOP 300/KJB4375) n 0 - 300 ng/ml Methadone (MTD) n 0 - 300 ng/ml Phencyclidine (PCP) n 0 - 25 ng/ml Nortriptyline (TCA) n 0 - 1000 ng/ml Oxycodone n 0 - 300 ng/ml x n 0 - 300 ng/ml UDT Reviewed date:11/23/2024 11:41:54 AM Interpretation: Performing Lab: Notes/Report: THC N 0 - 50 ng/ml Cocaine N 0 - 300 ng/ml Amphetamine N 0 - 1000 ng/ml Buprenorphine (BUP) N 0 - 10 ng/ml Secobarbital (Bar) N 0 - 300 ng/ml Oxazepam (BZO) N 0 - 300 ng/ml 8-yrdjpqibfd-7,7-gnhnmvbq-3,3-diphenylpyrrolidine (JEWEL P) N 0 - 300 ng/ml Methamphetamine (MET) N 0 - 1000 ng/ml Methylenedioxymethamphetamine (MDMA) N 0 - 500 ng/ml Morphine (MOP 300/TGA7000) N 0 - 300 ng/ml Methadone (MTD) N 0 - 300 ng/ml Phencyclidine (PCP) N 0 - 25 ng/ml Nortriptyline (TCA) N 0 - 1000 ng/ml Oxycodone N 0 - 300 ng/ml x N 0 - 300 ng/ml Reason For Referral No Information Medications Medication SIG (Take, Route, Frequency, Duration) Notes Start Date End Date Status Amphetamine-Dextroamphet amine 5 MG 1 tablet Orally once a day; Duration: 30 days as needed in the afternoons 04/13/2025 Active busPIRone HCl 15 MG 1 capsule Orally 3 times a day; Duration: 30 days dose increase Active Testosterone 10 MG/ACT (2%) 1 pump to skin in the morning to the thighs Transdermal Once a day Active amLODIPine Besylate 10 MG TAKE 1 TABLET BY MOUTH EVERY DAY Oral; Duration: 90 Days I10,Unavailable Active Lisdexamfetamine Dimesylate 50 MG 1 capsule in the morning Orally Once a day; Duration: 30 days 04/13/2025 Active Social History Tobacco Use: Social History Observation Description Date Details (start date - stop date) Never Smoker NA - 09/02/2018 Sex Assigned At : Social History Observation Description Sex Assigned At Male Tobacco Control (Standard) Question Answer Notes Tobacco use: Nonsmoker When did you stop smoking? 09/02/2018 How long has it been since you last smoked? 1-5 years AUDIT-C (Standard) Question Answer Notes Did you have a drink containing alcohol in the p ast year? No Problems Problem Type SNOMED Code ICD Code Onset Dates Problem Status W/U Status Risk Notes Problem Generalized anxiety disorder (38683170) BEV (generalized anxiety disorder) (F41.1) Active confirmed Problem Attention deficit hyperactivity disorder (506991826) ADHD (attention deficit hyperactivity disorder), combined type (F90.2) Active confirmed Problem Unable to concentrate (finding) (71562642) Difficulty concentrating (R41.840) Active confirmed Vital Signs Heart Rate 93 /min 04/13/2025 Height-cm 185.42 cm 04/13/2025 Blood pressure diastolic 80 mm Hg 04/13/2025 Weight-kg 98.43 kg 04/13/2025 Height 73 in 04/13/2025 Blood pressure systolic 130 mm Hg 04/13/2025 Weight 217.0 lbs 04/13/2025 BMI 28.63 kg/m2 04/13/2025 Procedures Procedure Date Ordered Date Performed Result Body Sit e ADHD Testing 11/23/2024 12/08/2024 N/A Encounters Encounter Location Date Provider Diagnosis [address] [address] 11/23/2024 Chelsea Martin Encounter for screen ing for cardiovascular disorders Z13.6 ; Difficulty concentrating R41.840 and Encounter for screening for depression Z13.[address] [address] 12/08/2024 Terry Avalos Lack of concentratio n R41.[address] [address] 12/15/2024 Chelsea Martin Encounter for screen ing for cardiovascular disorders Z13.6 ; ADHD (attention deficit hyperactivity disorder), combined type F90.2 ; Benign essential HTN I10 and Encounter for screening for depression Z13.[address] [address] 01/07/2025 Chelsea Martin ADHD (attention defi cit hyperactivity disorder), combined type F90.2 ; BEV (generalized anxiety disorder) F41.1 ; Negative depression screening Z13.31 ; Benign essential HTN I10 ; Encounter for screening for cardiovascular disorders Z13.6 and Encounter for screening for depression Z13.31 [facility] [address] 02/15/2025 Chelsea Martin BEV (generalized anxiety disorder) F41.1 ; ADHD (attention deficit hyperactivity disorder), combined type F90.2 ; Negative depression screening Z13.31 ; Benign essential HTN I10 ; Encounter for screening for cardiovascular disorders Z13.6 and Encounter for screening for depression Z13.[address] [address] 03/15/2025 Chelsea Martin BEV (generalized anxiety disorder) F41.1 and ADHD (attention deficit hyperactivity disorder), combined type F90.2 [facility] [employer] [address] [place] [address] 04/13/2025 Chelsea Martin BEV (generalized anxiety disorder) F41.1 and ADHD (attention deficit hyperactivity disorder), combined type F90.2 [facility] [employer] [address] [place] [address] 12/15/2024 Chelsea Martin Assessments Encounter Date Diagnosis (ICD Code) Assessment Notes Treatment Notes Treatment Clinical Notes Section Notes 11/23/2024 Difficulty concentrating (ICD-10 - R41.840) Pre-treatment [...] normal limits are seen, we consult a community service patrol officer to determine whether the results are sufficiently [...] There is a charge for Stimulant refills 12/08/2024 Lack of concentration (ICD-10 - R41.840) ADHD and Cognitive Function Assessment Summary for Iron Dacosta Date of : 1990 Age: 34 years Date of Assessment: December 08, 2024 Source: [facility] Clinical Report Summary of Findings 1. ADHD [...] screening for cardiovascular disorders (ICD-10 - Z13.6) 12/15/2024 ADHD (attention deficit hyperactivity disorder), combined type (ICD-10 - F90.2) Electronic Prior Authorization was requested for Qelbree 200 MG Capsule Extended Release 24 Hour. Provider can order medication once approval received. 11/23/2024 Encounter for screening for cardiovascular disorders [...] Provider can order medication once approval received. 04/13/2025 BEV (generalized anxiety disorder) (ICD-10 - F41.1) 03/15/2025 BEV (generalized anxiety disorder) (ICD-10 - F41.1) 03/15/2025 ADHD (attention deficit hyperactivity disorder), combined [...] policy, only prescribed to local pharmacy in [place], no early refills on control substance. 04/13/2025 ADHD (attention deficit hyperactivity disorder), combined type [...] policy, only prescribed to local pharmacy in [place], no early refills on control substance. 02/15/2025 Negative depression screening (ICD-10 - Z13.31) 01/07/2025 Negative depression screening (ICD-10 - Z13.31) 11/23/2024 Encounter for screening for depression (ICD-10 - Z13.31) 12/15/2024 Benign essential HTN (ICD-10 - I10) 12/15/2024 Encounter for screening for depression (ICD-10 - Z13.31) 01/07/2025 Benign essential HTN (ICD-10 - I10) 02/15/2025 Benign essential HTN (ICD-10 - I10) [...] proper dosing schedule and importance of compliance. [facility] Clinical Report ADHD testing results reviewed and [...] therapeutic effects of psychotropic medications. -Crisis prevention [facility] 988. 02/15/2025 Other Discontinue Qelbree due to [...] therapeutic effects of psychotropic medications. -Crisis prevention [facility] 98. 03/15/2025 Other Start lisdexamfetamine 30mg daily for [...] therapeutic effects of psychotropic medications. -Crisis prevention [facility] 98. 04/13/2025 Other Increase Vyvanse to 50mg daily for adhd management Start adderall ir 5mg daily for afternoon adhd management Patient educated on all medications including potential benefits, side effects, risks. Educated on proper dosing schedule and importance of compliance. [place] PDMP report checked and consistent with prescription history, no controlled substance prescriptions from other providers. -Assessment and treatment plan reviewed with patient. -Compliance with treatment plan importance discussed. -Discussed the risks/benefits of this medication -Discussed medication side effects. -Contact office if symptoms worsen. -Discussed that it can take up to 6-8 weeks to see full therapeutic effects of psychotropic medications. -Crisis prevention hotline 858. Plan Of Treatment Next Appt Details Provider Name:Chelsea Wallace sharron, 05/14/2025 02:45:00 PM, [address], [facility] [address], [place], [address], Insurance Providers Payer Name Payer Address Payer Phone Subscriber Number Group Number Insured Name Patient Relationship to Insured Coverage Start Date Coverage End Date [facility] [address] [place] [address] [id number] Iron Doherty Self - patient is the [...]
--- OUTSIDE RECORDS SUMMARY | 2025-04-14 08:06 | XMS_ITS ---
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 Name Role Phone Michaels Shereen BALDERAS Primary Care Provider Chelsea Brooks [phone] Allergies No Known Allergies Results Component Value Reference Range Notes UDT Reviewed date:04/13/2025 11:00:59 AM Interpretation: Performing Lab: Notes/Report: THC N 0 - 50 ng/ml Cocaine N 0 - 300 ng/ml Amphetamine P 0 - 1000 ng/ml Buprenorphine (BUP) N 0 - 10 ng/ml Secobarbital (Bar) N 0 - 300 ng/ml Oxazepam (BZO) N 0 - 300 ng/ml 3-bfhzndnlvf-1,2-yilsagmy-0,3-diphenylpyrrolidine (JEWEL P) N 0 - 300 ng/ml Methamphetamine (MET) N 0 - 1000 ng/ml Methylenedioxymethamphetamine (MDMA) N 0 - 500 ng/ml Morphine (MOP 300/[id number]) N 0 - 300 ng/ml Methadone (MTD) N 0 - 300 ng/ml Phencyclidine (PCP) N 0 - 25 ng/ml Nortriptyline (TCA) N 0 - 1000 ng/ml Oxycodone N 0 - 300 ng/ml x N 0 - 300 ng/ml REASON FOR VISIT 1 month f/u, Follow up psychological reason Medications Medication SIG (Take, Route, Frequency, Duration) [...] - stop date) Never Smoker NA - NA Sex Assigned At : Social History Observation Description Sex Assigned At Male Tobacco Control (Standard) Question Answer Notes Tobacco use: Nonsmoker Vital Signs Blood pressure systolic 130 mm Hg 04/13/20 25 Blood pressure diastolic 80 mm Hg 025 Heart Rate 93 /min 04/13/2025 Height 73 in 04/13/2025 Weight 217.0 lbs 04/13/2025 BMI 28.63 kg/m2 04/13/2025 Height-cm 185.42 cm 04/13/2025 Weight-kg 98.43 kg 04/13/2025 Encounters Encounter Location Date Provider Diagnosis [facility] [address] [facility] [address] [place] [address] 04/13/2025 Chelsea Martin BEV (generalized anxiety disorder) F41.1 and ADHD (attention deficit hyperactivity disorder), combined type F90.2 Assessments Encounter Date Diagnosis (ICD Code) Assessment Notes Treatment Notes Treatment Clinical Notes Section Notes 04/13/2025 BEV (generalized anxiety disorder) (ICD-10 - F41.1) 04/13/2025 ADHD (attention deficit hyperactivity disorder), combined [...] policy, only prescribed to local pharmacy in [place], no early refills on control substance. 04/13/2025 Other Increase Vyvanse to 50mg daily [...] -Crisis prevention hotline 988. Plan Of Treatment Medication Medication Name Sig Start Date Stop Date Notes Amphetamine-Dextroamphetamin e 5 MG 1 tablet Orally once a day; Duration: 30 days 04/13/2025 busPIRone HCl 15 MG 1 capsule Orally 3 times a day; Duration: 30 days dose increase Lisdexamfetamine Dimesylate 50 MG 1 capsule in the morning Orally Once a day; Duration: 30 days 04/13/2025 Treatment Notes Assessment Notes ADHD (attention deficit hype ractivity disorder), combined type ADHD Stimulant Education -Discussed with patient risk [...] policy, only prescribed to local pharmacy in [place], no early refills on control substance. Other Increase Vyvanse to 50mg daily for adhd management Start adderall ir 5mg daily for afternoon adhd management Patient educated on all medications including potential benefits, side effects, risks. Educated on proper dosing schedule and importance of compliance. [place] PDMP report checked and consistent with prescription history, no controlled substance prescriptions from other providers. 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 Anxiety w ith excessive worry. Depression w ith decreased concentration, with feeling of disappointing others . Mood lability n o hx geraldo. Psychosis n o hx psychosis. Suicidal ideation d enies. Substance abuse S charlene since 2018- cocaine, cannabis, alcohol. . ADHD f ails to give close attention to details or makes careless mistakes in schoolwork, work, or other activities, has difficulty sustaining attention in tasks or play activity, forgetful in daily activities, easily distracted by extraneous stimuli, avoids, dislikes, or is reluctant to engage in tasks that require sustained mental effort, does not follow through on instructions and fails to finish work, fidgets with hands or feet or squirms in seat. Psychotherapy Alexander Curran- for couples counseling once weekly. Here for follow up. Vyvanse started last visit for ADHD management. Reports he noted an initial improvement the first week however was not lasting longer than 4 hours. The first week he was taking it, it was lasting about 6-7 hours. 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 During the four hours that he feels the Vyvanse is effective, feels the ADHD is well managed, feeling less overwhelmed and completing tasks. Continues to struggle with maintaining focus. Forgetfulness has improved. Denies side effects to the medication. Denies irritability. He continues to report persistant anxiety, although denies panic attacks. P ast Psychiatric Hospitalizations: Previous psychiatric hospitalizations P revious Psychiatric Hospitalization Y es H ow Many Psychiatry Hospitalizations Have You Had in the past? 1 W hen were you last hospitalized? month and year 0 02/2016 W hat was the cause of your psychiatric hospitalizations? M anic episode Past History of Suicidal attempt H ave you ever attempted suicide in the past?No Social hx: to [place], has two children. 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 Medical hx: low testosterone. Denies history of head trauma or seizures. Past psychiatric hx- Hx ECT/TMS/esketamine: none Past [facility] admissions/IOP/PHP: 7 rehab stays- last one in 2015 Previous suicide attempts: history of one attempt by cutting-reports this was for attentions he could go back to living with his parents in context of substance use. Previous self-harming: none Family psychiatric hx: none he is aware of Previous medications: Wellbutrin (jitteriness), sertraline, atomoxetine (ineffective), qelbree (irritable), duloxetine (worse). Supplements: [employer] [place] [employer] [address] Substance use hx: I did everything under the sun cocaine, methamphetamine, benzos. Sober since 2018. Nicotine: none since 2019 Alcohol: none. D epression Screening: BEV-7 (2018 Edition) F eeling nervous, anxious, or on edge S everal days N ot being able to stop or control worrying?Several days W orrying too much about different things S everal days T rouble relaxing S everal days B ecoming easily annoyed or irritable S everal days F eeling afraid as if something awful might happen S everal days I f you checked any problems, how difficult have they made it for you to do your work, take care of things at home, or get along with other people? S omewhat difficult [place]-Suicide Severity Rating Scale: Suicide Risk (CSRS-screener) i n the past one month Have you wished you were or wished you could go to sleep and not wake up? N o i n the past one month Have you actually had any thoughts of killing yourself? N o H ave you ever done anything, started to do anything, or prepared to do anything to end your life? N o D epression screening: PHQ-9 L ittle interest or pleasure in doing things?Not at all F eeling down, depressed, or hopeless N ot at all T rouble falling or staying asleep, or sleeping too much N ot at all F eeling tired or having little energy N ot at all P oor appetite or overeating N ot at all M oving or speaking so slowly that other people could have noticed; or the opposite, being so fidgety or restless that you have been moving around a lot more than usual N ot at all T houghts that you would be better off or of hurting yourself in some way N ot at all I nterpretation M inimal Depression * ROS: G eneral / Constitutional: Patient denies c hange in appetite, headache, lightheadedness, sleep disturbance, weight gain, weight loss. C ardiovascular: Patient denies p alpitations. G astrointestinal: Patient denies n ausea, vomiting, constipation. ? N eurologic: Patient denies c onfusion, tic, tremor. P sychiatric: Patient denies a uditory / visual hallucinations, delusions, suicidal thoughts, geraldo, psychosis, involuntary movements. P atient complains of a nxiety, difficulty concentrating. C alina [facility] for details. * Medical History: * Surgical History: * Hospitalization/Major Diagno stic Procedure: * Family History: F ather: None. M other: None. B rother: Anxiety Disorder. 3 brother(s) , 1 sister(s) . 2 daughter(s) . . * Social History: T obacco Use: T obacco Control (Standard) T obacco use: N onsmoker * Medications: T akingTestosterone 10 MG/ACT (2%) Gel 1 pump to skin in the morning to the thighs Transdermal Once a day amLODIPine Besylate 10 MG Tablet TAKE 1 TABLET BY MOUTH EVERY DAY Oral , Notes to Pharmacist: I10,UnavailablebusPIRone HCl 10 MG Capsule 1 capsule Orally 3 times a day Lisdexamfetamine Dimesylate 30 MG Capsule 1 capsule in the morning Orally Once a day Medication List reviewed and reconciled with the patientTaking Testosterone 10 MG/ACT (2%) Gel 1 pump to skin in the morning to the thighs Transdermal Once a day Taking amLODIPine Besylate 10 MG Tablet TAKE 1 TABLET BY MOUTH EVERY DAY Oral , Notes to Pharmacist: I10,UnavailableTaking busPIRone HCl 10 MG Capsule 1 capsule Orally 3 times a day Taking Lisdexamfetamine Dimesylate 30 MG Capsule 1 capsule in the morning Orally Once a day Medication List reviewed and reconciled with the patient * Allergies: N .K.D.A.no[Allergies Verified] Objective: * Vitals: B P:130/80mm Hg, HR:93/min, Wt:217.0lbs, Wt-k.43 kg, Ht: 73 in, Ht-cm: 185.42 cm, BMI:28.63Index, Body Surface Area: 2.25. * Examination: P sychiatry: Appearance: w ell-groomed. Abnormal body movements: n one. Affect / mood: a ppropriate. Attention: g ood. Attitude: c ooperative. Homicidal ideation: n one. Suicidal ideation: n one. Degree of awareness of surroundings: w ithin normal limits.? Delusions: n o. Hallucinations: n o. Insight: g ood. Judgement: g ood. Orientation: a wake, alert and oriented x 3. Perceptual disorders: n o perceptual disorder noted. Psychomotor activity: w ithin normal range. Speech / language: n ormal rate, volume, and articulation (RVR), clear and coherent, appropriate pitch/modulation. Thought content: a ppropriate. Thought process: i ntact. Assessment: * Assessment: 1. A DHD (attention deficit hyperactivity disorder), combined type - F90.2 (Primary) 2 . G AD (generalized anxiety disorder) - F41.1 Plan: * Treatment: 2. G AD (generalized anxiety disorder) Increase busPIRone HCl Capsule, 15 MG, 1 capsule, Orally, 3 times a day, 30 days, 90 Capsule, Refills 1, Notes to Pharmacist: dose increase. 3. O thers Notes: Increase Vyvanse to 50mg daily for adhd management Start adderall ir 5mg daily for afternoon adhd management Patient educated on all medications including potential benefits, side effects, risks. Educated on proper dosing schedule and importance of compliance. [place]MP report checked and consistent with prescription history, no controlled substance prescriptions from other providers. Clinical Notes: -Assessment and treatment plan reviewed with patient. -Compliance with treatment plan importance discussed. -Discussed the risks/benefits of this medication -Discussed medication side effects. -Contact office if symptoms worsen. -Discussed that it can take up to 6-8 weeks to see full therapeutic effects of psychotropic medications. -Crisis prevention hotline 956. * Labs: * L ab: UDT (Collection Date & Time - 04/13/2025) Value Reference Range T HC N 0 - 50 ng/ml * C ocaine N 0 - 300 ng/ml * A mphetamine P 0 - 1000 ng/ml * B uprenorphine (BUP) N 0 - 10 ng/ml * S ecobarbital (Bar) N 0 - 300 ng/ml * O xazepam (BZO) N 0 - 300 ng/ml * 2 -ethylidene-1,6-viaxjzrg-6,3-diphenylpyrrolidine (EDDP) N 0 - 300 ng/ml * M ethamphetamine (MET) N 0 - 1000 ng/ml * M ethylenedioxymethamphetamine (MDMA) N 0 - 500 ng/ml * M orphine (MOP 300/[id number]) N 0 - 300 ng/ml * M ethadone (MTD) N 0 - 300 ng/ml * P hencyclidine (PCP) N 0 - 25 ng/ml * N ortriptyline (TCA) N 0 - 1000 ng/ml * O xycodone N 0 - 300 ng/ml * x N 0 - 300 ng/ml * Procedure Codes: 1 036F TOBACCO [id number] BEHAV ASSMT W/SCORE & DOCD/STAND [id number] DRUG TST PRSMV READ INSTRMNT ASSTD DIR OPT [id number] VISIT COMPLEXITY INHERENT TO ONGOING CARE RELATED TO A PATIENT'S SINGLE, SERIOUS CONDITION OR A COMPLEX CONDITION * Preventive Medicine: Screenings: D epression screening Have you had a recent depression screening? Y es * Follow Up: 4 Weeks (Reason: medication follow up) * Billing Information: * Visit Code: 64175 OFFICE OUTPATIENT VISIT 25 MINUTES DETAILED HISTORY AND EXAM/MODERATE MEDICAL DECISION MAKING. * Procedure Codes: 1036F TOBACCO NON-USER. 05908 BEHAV ASSMT W/SCORE & DOCD/STAND INSTRUMENT. 74303 DRUG TST PRSMV READ INSTRMNT ASSTD DIR OPT OBS. G2211 VISIT COMPLEXITY INHERENT TO ONGOING CARE RELATED TO A PATIENT'S SINGLE, SERIOUS CONDITION OR A COMPLEX CONDITION. * Sign off status: Completed true * Provider: SEAN CARTAGENA Date: 0 04/13/2025 Generated for Rob salomon/Nagaraciel/eTransmitting on: 0 04/14/2025 08:06 AM CDT History and Physical Notes * HPI (History of Present Illness) Category Sub-Category Detail Notes Category Not es History of Presenting Problem Anxiety with excessive worry Here for follow up. Vyvanse started last visit for ADHD management. Reports he noted an initial improvement the first week however was not lasting longer than 4 hours. The first week he was taking it, it was lasting about 6-7 hours. 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 During the four hours that he feels the Vyvanse is effective, feels the ADHD is well managed, feeling less overwhelmed and completing tasks. Continues to struggle with maintaining focus. Forgetfulness has improved. Denies side effects to the medication. Denies irritability. He continues to report persistant anxiety, although denies panic attacks. Depression with decreased ragini ntration, with feeling of disappointing others Substance abuse Sober since 2019- co raghavendra, cannabis, alcohol. Suicidal ideation denies Psychosis no hx psychosis Mood lability no hx geraldo ADHD fails to give close attention to details or makes careless mistakes in schoolwork, work, or other activities, has difficulty sustaining attention in tasks or play activity, forgetful in daily activities, easily distracted by extraneous stimuli, avoids, dislikes, or is reluctant to engage in tasks that require sustained mental effort, does not follow through on instructions and fails to finish work, fidgets with hands or feet or squirms in seat Psychotherapy Guevara Curran- for couples counseling once weekly Medication Side Effects denies Past Psychiatric Hospitalizations Previous psychiatric hospitalizations Previous Psychiatric Hospitalization: Yes Social hx: to [place], has two children. 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 Medical hx: low testosterone. Denies history of head trauma or seizures. Past psychiatric hx- Hx ECT/TMS/esketamine: none Past [facility] admissions/IOP/PHP: 7 rehab stays- last one in 2016 Previous suicide attempts: history of one attempt by cutting-reports this was for attentions he could go back to living with his parents in context of substance use. Previous self-harming: none Family psychiatric hx: none he is aware of Previous medications: Wellbutrin (jitteriness), sertraline, atomoxetine (ineffective), qelbree (irritable), duloxetine (worse). Supplements: [employer] [place] [employer] [address] Substance use hx: I did everything under the sun cocaine, methamphetamine, benzos. Sober since 2018. Nicotine: none since 2019 Alcohol: none How Many Psychiatry Hospitalizations Have You Had in the past?: 1 When were you last hospitalized? month a nd year: 02/2016 What was the cause of your psychiatric h ospitalizations?: Manic episode Past History of Suicidal attempt Have yo u ever attempted suicide in the past: No Depression screening PHQ-9 Little inte rest or pleasure in doing things: Not at all Feeling down, depressed, or hopeless: No t at all Trouble falling or staying asleep, or sl eeping too much: Not at all Feeling tired or having little energy: N ot at all Poor appetite or overeating: Not at all Moving or speaking so slowly that other people could have noticed; or the opposite, being so fidgety or restless that you have been moving around a lot more than usual: Not at all Thoughts that you would be b benjamin off or of hurting yourself in some way: Not at all Interpretation: Minimal Depression Depression Screening BEV-7 (2018 Edition) Feelin g nervous, anxious, or on edge: Several days Not being able to stop or control worryi ng: Several days Worrying too much about different things : Several days Trouble relaxing: Several days Becoming easily annoyed or irritable: Se veral days Feeling afraid as if something awful ch[place] ht happen: Several days If you checked any problems, how difficult have they made it for you to do your work, take care of things at home, or get along with other people?: Somewhat difficult [place]-Suicide Severity Rating Scale Suicide Risk (CSRS-screener) in the past one month Have you wished you were or wished you could go to sleep and not wake up?: No in the past one month Have y ou actually had any thoughts of killing yourself?: No Have you ever done anything, started to do anything, or prepared to do anything to end your life?: No Examination Category Sub-Category Detail Notes Category Not es Psychiatry Appearance: well-groomed Attitude: cooperative Psychomotor activity: within normal rang e Abnormal body movements: none Attention: good Degree of awareness of surroundings: wit hin normal limits Orientation: awake, alert and gabe ented x 3 Affect / mood: appropriate Speech / language: normal rate, volume, and articulation (RVR), clear and coherent, appropriate pitch/modulation Insight: good Judgement: good Thought process: intact Thought content: appropriate Perceptual disorders: no perceptual diso rder noted Suicidal ideation: none Homicidal ideation: none Delusions: no Hallucinations: no
[2025-04-14 08:13] VITALS: BP 144/85; PULSE 81; RESP 18; TEMP 36.6; O2SAT 99
== END 2025-04-14 08:36 | disposition home or self-care (01) ==
PROVIDERS: Emergency Provider Nurse Practitioner Family; PCP Nurse Practitioner Family
DX: S90.861A Insect bite (nonvenomous), right foot, initial encounter (principal); L08.9 Local infection of the skin and subcutaneous tissue, unspecified; W57.XXXA Bitten or stung by nonvenomous insect and other nonvenomous arthropods, initial encounter; I10 Essential (primary) hypertension; F90.9 Attention-deficit hyperactivity disorder, unspecified type
CPT/HCPCS: 99213; G0463